=== PATIENT | female | born 1955 | race Caucasian/White ===

== ENCOUNTER 2023-07-15 14:14 | Emergency (ER) | payer OTHER, SELFPAY ==
[2023-07-15 14:26] VITALS: BP 134/73; PULSE 70; RESP 16; TEMP 36.7; O2SAT 97; BMI 26.5
[2023-07-15 15:34] VITALS: BP 133/89; PULSE 58; RESP 18; O2SAT 98
--- NOTE | 2023-07-15 15:55 | W.ED.RECABL ---
HPI - Recheck/Abnormal Lab/Rx General: Chief Complaint: Recheck/Abnormal Lab/Rx Stated Complaint: abnormal labs Time Seen by Provider: 07/15/23 15:55 Source: patient Mode of arrival: ambulatory History of Present Illness: 67-year-old female with a history of hypothyroidism she is not been feeling well she feels like she has difficult time swallowing she is concerned because she feels cold all the time and has been coughing and feels hoarse so she is talked to her primary care provider they advised her to come to the emergency room to have labs checked. She is on Synthroid has been since 1998. She is not on any other medications. Review of Systems Const: Denies: fever(s) or chills Card: Denies: chest pain Resp: Denies: dyspnea GI: Denies: abdominal pain : Denies: dysuria, urinary frequency or urinary urgency Musc: Denies: neck pain or back pain Skin/Breast: Denies: rash PFSH ED PFSH: Medical History (Updated 07/23/23 @ 00:00 by SAVANNAH Kimball) Hypothyroidism Physical Exam Const: COMMON NORMALS: no acute distress GENERAL APPEARANCE: cooperative and comfortable ORIENTATION/CONSCIOUSNESS: Yes awake, Yes oriented to person, Yes oriented to place and Yes oriented to time HENMT: COMMON NORMALS: normocephalic, atraumatic and hearing grossly normal bilaterally HEAD & SCALP: normocephalic and atraumatic Resp: COMMON NORMALS: normal respiratory effort, No retractions, No use of accessory muscles and clear to auscultation bilaterally AUSCULTATION: clear to auscultation bilaterally Cardio: COMMON NORMALS: regular rate, regular rhythm and No murmurs present (Cardio) RATE: regular rate RHYTHM: regular rhythm GI: COMMON NORMALS: Soft to palpation and No hepatosplenomegaly present AUSCULTATION: Yes normoactive bowel sounds PALPATION: Yes Soft to palpation, No Tenderness to palpation present (GI), No Guarding due to palpation present (GI) and Yes No hepatosplenomegaly present Extremity: COMMON NORMALS: normal to inspection, capillary refill normal, no clubbing, cyanosis or edema, no calf tenderness and no pedal edema Neuro: SENSORIUM/ORIENTATION: Yes oriented to person, Yes oriented to place and Yes oriented to time Skin: COMMON NORMALS: no rashes or lesions noted GENERAL SKIN EXAM: no rashes or lesions noted Course Vital Signs: Vital signs: Vital Signs Temperature 98.0 F 07/15/23 14:26 Pulse Rate 60 07/15/23 16:53 Respiratory Rate 19 H 07/15/23 16:53 Blood Pressure 137/77 07/15/23 16:53 Pulse Oximetry 99 07/15/23 16:53 Oxygen Delivery Me thod Room Air 07/15/23 15:34 MDM - Recheck/Abnormal Lab/Rx Medical Decision Making Viral upper respiratory i symptoms noted on exam and history. Her TSH is normal. Vital signs otherwise normal. She is euthyroid at this point does not need any adjustment recommend she use supportive cares for viral respiratory symptoms follow-up with her primary care doctor Medical Records I reviewed the patient's medical records. Lab Data I reviewed the patient's lab results. 07/15/23 15:49 07/15/23 15:49 Laboratory Results WBC 10.73 10^3/uL (3.29-11.43) 07/15/23 15:49 RBC 5.69 10^6/uL (3.85-5.65) H 07/15/23 15:49 Hgb 17.20 g/dL (11.27-16.99) H 07/15/23 15:49 Hct 50.5 % (36-47) H 07/15/23 15:49 MCV 88.8 fl (85-98) 07/15/23 15:49 MCH 30.2 pg (27-33) 07/15/23 15:49 MCHC 34.1 g/dL (30-55) 07/15/23 15:49 RDW 12.4 % (12.1-15.1) 07/15/23 15:49 Plt Count 370 10^3/cmm (157-399) 07/15/23 15:49 MPV 9.8 fL (7.4-10.4) 07/15/23 15:49 Neut % (Auto) 57.7 % 07/15/23 15:49 Lymph % (Auto) 33.9 % 07/15/23 15:49 [place] % (Auto) 6.4 % 07/15/23 15:49 Eos % (Auto) 0.7 % 07/15/23 15:49 Baso % (Auto) 1.0 % 07/15/23 15:49 Neut # (Auto) 6.18 10^3/uL (1.8-7.7) 07/15/23 15:49 Lymph # (Auto) 3.6 10^3/uL (0.8-4.8) 07/15/23 15:49 [place] # (Auto) 0.7 10^3/uL (0.2-0.9) 07/15/23 15:49 Eos # (Auto) 0.1 10^3/uL (0.0-0.8) 07/15/23 15:49 Baso # (Auto) 0.1 10^3/uL (0.0-0.1) 07/15/23 15:49 Nucleated RBC % (auto) 0 % 07/15/23 15:49 Nucleated RBCs # 0.0 /100WBC 07/15/23 15:49 Sodium 140 mmol/L (136-145) 07/15/23 15:49 Potassium 3.8 mmol/L (3.5-5.1) 07/15/23 15:49 Chloride 101 mmol/L (98-107) 07/15/23 15:49 Carbon Dioxide 25 mmol/L (22-29) 07/15/23 15:49 Anion Gap 17.8 (5-19) 07/15/23 15:49 BUN 13 mg/dL (8-23) 07/15/23 15:49 Creatinine 1.0 mg/dL (0.5-0.9) H 07/15/23 15:49 GFR Calculation 55.6 mL/min (90-130) L 07/15/23 15:49 Glucose 84 mg/dL (65-115) 07/15/23 15:49 Calculated Osmolality 289 mOsm/kg (285-295) 07/15/23 15:49 Calcium 9.7 mg/dL (8.5-10.5) 07/15/23 15:49 Total Bilirubin 0.6 mg/dL (0.15-1.2) 07/15/23 15:49 AST 17 U/L (0-32) 07/15/23 15:49 ALT 18 U/L (0-33) 07/15/23 15:49 Alkaline Phosphatase 66 U/L (35-105) 07/15/23 15:49 Total Protein 7.5 g/dL (6.6-8.7) 07/15/23 15:49 Albumin 4.7 g/dL (3.5-5.2) 07/15/23 15:49 Globulin 2.8 g/dL (1.3-4.6) 07/15/23 15:49 TSH 2.40 uIU/mL (0.27-4.20) 07/15/23 15:49 No radiology studies performed this visit Discharge Plan Discharge Patient Disposition: Home Clinical Impression: Viral URI with cough, Hypothyroidism Condition: Stable Discharge Orders: Discharge ED (Routine); Ordered 07/15/23 Ordered By: Antwon Parham Referrals: Gurinder Crooks FNP [Primary Care Provider] - Discharge Diet: Usual diet Discharge Activity: Resume usual activity Patient Instructions: Opioid Safety, Pain Management Activity Restrictions/Additional Instructions: Thank you for choosing [facility] for your healthcare needs today. Please realize this is an emergency room and that we are providing you with a medical screening exam and this may not be complete and all inclusive of all the testing and or work up that you may need to determine your ailment or severity of your illness. It is very important that you follow up as instructed or that you return to the Emergency Department should you have concerns or if your condition changes or worsens in any way. You were seen in the emergency room with complaints of low-grade fever coughing and hoarseness. These are likely signs of a viral upper respiratory infection rather than a thyroid issue. Laboratory test done in the emergency room showed some mild polycythemia but were otherwise unremarkable. Follow-up with your primary care doctor. Your thyroid testing, TSH was normal. Coding Level of Care Code ED Couture Dressmaker for Roberto James
[2023-07-15 15:57] LABS: Basophils # 0.1 10^3/uL (0.0-0.1); Eosinophils # 0.1 10^3/uL (0.0-0.8); Eosinophils % 0.7 %; Hematocrit 50.5 % (36-47); Lymphocytes # 3.6 10^3/uL (0.8-4.8); Lymphocytes % 33.9 %; Mean Corpuscular HGB Conc 34.1 g/dL (30-55); Mean Corpuscular Hemoglobin 30.2 pg (27-33); Mean Corpuscular Volume 88.8 fl (85-98); Mean Platelet Volume 9.8 fL (7.4-10.4); Monocytes # 0.7 10^3/uL (0.2-0.9); Monocytes % 6.4 %; Neutrophils # 6.18 10^3/uL (1.8-7.7); Neutrophils % 57.7 %; Nucleated Red Blood Cells % 0 %; Platelet Count 370 10^3/cmm (157-399); Red Blood Count 5.69 10^6/uL (3.85-5.65); Red Cell Distribution Width 12.4 % (12.1-15.1); White Blood Count 10.73 10^3/uL (3.29-11.43)
[2023-07-15 16:33] LABS: Alanine Aminotransferase 18 U/L (0-33); Albumin Level 4.7 g/dL (3.5-5.2); Alkaline Phosphatase 66 U/L (35-105); Anion Gap 17.8 (5-19); Aspartate Amino Transferase 17 U/L (0-32); Blood Urea Nitrogen 13 mg/dL (8-23); Calcium 9.7 mg/dL (8.5-10.5); Carbon Dioxide 25 mmol/L (22-29); Chloride 101 mmol/L (98-107); Globulin 2.8 g/dL (1.3-4.6); Glomerular Filtration Rate 55.6 mL/min (90-130); Glucose 84 mg/dL (65-115); Osmolality Calculated 289 mOsm/kg (285-295); Potassium 3.8 mmol/L (3.5-5.1); Sodium 140 mmol/L (136-145); Total Bilirubin 0.6 mg/dL (0.15-1.2); Total Protein 7.5 g/dL (6.6-8.7)
[2023-07-15 16:53] VITALS: BP 137/77; PULSE 60; RESP 19; O2SAT 99
== END 2023-07-15 17:37 | disposition home or self-care (01) ==
PROVIDERS: Physician Assistant; Emergency Provider Family Medicine; PCP Nurse Practitioner
DX: J06.9 Acute upper respiratory infection, unspecified (principal); R05.9 Cough, unspecified; E03.9 Hypothyroidism, unspecified
CPT/HCPCS: 36415; 80053; 84443; 85025; 99283

== ENCOUNTER 2024-04-11 18:43 | Emergency (ER) | payer MEDICARE, SELFPAY ==
[2024-04-11 18:56] VITALS: BP 157/73; PULSE 63; RESP 17; TEMP 37; O2SAT 98; BMI 23.9
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
[2024-04-11 20:58] VITALS: BP 151/75; PULSE 61; RESP 16; TEMP 37; O2SAT 99
== END 2024-04-11 20:05 | disposition home or self-care (01) ==
PROVIDERS: Emergency Provider Emergency Medicine; PCP Nurse Practitioner
DX: S89.391A Other physeal fracture of lower end of right fibula, initial encounter for closed fracture (principal); V29.99XA Rider (driver) (passenger) of other motorcycle injured in unspecified traffic accident, initial encounter
CPT/HCPCS: 29515; 73502; 73590; 73630; 99284; E0114

== ENCOUNTER → 2024-04-16 09:06 | Outpatient (BNVA) | payer MEDICARE, SELFPAY | PROVIDERS: PCP Nurse Practitioner; Visit Provider Podiatrist Foot & Ankle Surgery | DX: S82.401A Unspecified fracture of shaft of right fibula, initial encounter for closed fracture; X58.XXXA Exposure to other specified factors, initial encounter; R60.9 Edema, unspecified; M25.571 Pain in right ankle and joints of right foot; M21.619 Bunion of unspecified foot | CPT/HCPCS: 73610 ==

== ENCOUNTER 2024-04-16 10:28 | Outpatient (CLI) | payer MEDICARE, SELFPAY | END 2024-04-16 10:29 | disposition home or self-care (01) | LOC: SPT 10:29 | PROVIDERS: PCP Nurse Practitioner; Visit Provider Podiatrist Foot & Ankle Surgery | DX: Z46.89 Encounter for fitting and adjustment of other specified devices (principal); S82.891D Other fracture of right lower leg, subsequent encounter for closed fracture with routine healing; X58.XXXD Exposure to other specified factors, subsequent encounter | CPT/HCPCS: 97760; L4361 ==

== ENCOUNTER → 2024-05-01 09:08 | Outpatient (BNVA) | payer MEDICARE, SELFPAY | PROVIDERS: PCP Nurse Practitioner; Visit Provider Podiatrist Foot & Ankle Surgery | DX: M25.571 Pain in right ankle and joints of right foot (principal); S82.401A Unspecified fracture of shaft of right fibula, initial encounter for closed fracture; X58.XXXA Exposure to other specified factors, initial encounter; M21.611 Bunion of right foot | CPT/HCPCS: 73610; 99213 ==

== ENCOUNTER → 2024-05-12 09:05 | Outpatient (BNVA) | payer MEDICARE, SELFPAY | PROVIDERS: PCP Nurse Practitioner; Visit Provider Podiatrist Foot & Ankle Surgery | DX: S82.401A Unspecified fracture of shaft of right fibula, initial encounter for closed fracture (principal); M21.619 Bunion of unspecified foot; X58.XXXA Exposure to other specified factors, initial encounter | CPT/HCPCS: 73610; 99213 ==

== ENCOUNTER → 2024-05-28 09:45 | Outpatient (BNVA) | payer MEDICARE, SELFPAY | PROVIDERS: PCP Nurse Practitioner; Visit Provider Podiatrist Foot & Ankle Surgery | DX: S82.401D Unspecified fracture of shaft of right fibula, subsequent encounter for closed fracture with routine healing; X58.XXXD Exposure to other specified factors, subsequent encounter; R60.9 Edema, unspecified; M25.571 Pain in right ankle and joints of right foot; M21.611 Bunion of right foot | CPT/HCPCS: 73610 ==

== ENCOUNTER 2024-05-28 10:27 | Outpatient (CLI) | payer MEDICARE, SELFPAY | END 2024-05-28 10:28 | disposition home or self-care (01) | LOC: SPT 10:28 | PROVIDERS: PCP Nurse Practitioner; Visit Provider Podiatrist Foot & Ankle Surgery | DX: Z46.89 Encounter for fitting and adjustment of other specified devices (principal); S82.891D Other fracture of right lower leg, subsequent encounter for closed fracture with routine healing; X58.XXXD Exposure to other specified factors, subsequent encounter | CPT/HCPCS: 97760; L1902 ==

== ENCOUNTER → 2024-06-18 10:08 | Outpatient (BNVA) | payer MEDICARE, SELFPAY | PROVIDERS: PCP Nurse Practitioner; Visit Provider Podiatrist Foot & Ankle Surgery | DX: S82.401A Unspecified fracture of shaft of right fibula, initial encounter for closed fracture (principal); R60.9 Edema, unspecified; M21.619 Bunion of unspecified foot; X58.XXXA Exposure to other specified factors, initial encounter | CPT/HCPCS: 73610; 99213 ==

== ENCOUNTER 2024-09-02 20:29 | Inpatient (IN) | payer MEDICARE, SELFPAY ==
[2024-09-02 20:30] VITALS: BP 129/83; PULSE 89; RESP 18; TEMP 36.8; O2SAT 96
--- NOTE | 2024-09-02 20:41 | ECG_ITS ---
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 Measurements Intervals Flom Rate: 82 P: 56 CA: 165 QRS: -55 QRSD: 97 T: 113 QT: 390 QTc: 456 Interpretive Statements SINUS RHYTHM POSSIBLE LEFT ATRIAL ENLARGEMENT [-0.1mV P-WAVE IN V1/V2] INCOMPLETE RIGHT BUNDLE BRANCH BLOCK [90+ ms QRS DURATION, TERMINAL R IN V1/V2, 40+ ms S IN I/aVL/V4/V5/V6] LEFT ANTERIOR FASCICULAR BLOCK [QRS AXIS <= -45, QR IN I, RS IN II] POSSIBLE LEFT VENTRICULAR HYPERTROPHY [VOLTAGE CRITERIA PLUS LAE OR QRS WIDENING] ANTEROSEPTAL MYOCARDIAL INFARCTION , PROBABLY RECENT [40+ ms Q WAVE IN V1-V4] ACUTE AL No previous ECG available for comparison Electronically Signed On 09-03-2024 18:23:12 TRANSPORT COORDINATOR by Jeo Park M.D. [email or web address]
--- NOTE | 2024-09-02 20:41 | XRR_ITS ---
PROCEDURE INFORMATION: Exam: XR Chest Exam date and time: 09/02/2024 8:52 PM Age: 68 years old Clinical indication: Pain; Chest pressure; Additional info: Chest pain TECHNIQUE: Imaging protocol: Radiologic exam of the chest. Views: 1 view. COMPARISON: No relevant prior studies available. FINDINGS: Lungs: Unremarkable. No consolidation. Pleural spaces: Unremarkable. No pleural effusion. No pneumothorax. Heart/Mediastinum: Mild cardiomegaly. Bones/joints: Unremarkable. XR/XR chest 1V portable [id number] IMPRESSION: 1. Mild cardiomegaly. 2. Negative for infiltrate.
[2024-09-02 20:48] LABS: Basophils # 0.1 10^3/uL (0.0-0.1); Eosinophils # 0.3 10^3/uL (0.0-0.8); Eosinophils % 2.3 %; Hematocrit 48.8 % (36-47); Lymphocytes # 2.7 10^3/uL (0.8-4.8); Lymphocytes % 23.3 %; Mean Corpuscular HGB Conc 33.8 g/dL (30-55); Mean Corpuscular Hemoglobin 30.2 pg (27-33); Mean Corpuscular Volume 89.2 fl (85-98); Mean Platelet Volume 9.2 fL (7.4-10.4); Monocytes # 0.9 10^3/uL (0.2-0.9); Monocytes % 7.7 %; Neutrophils # 7.46 10^3/uL (1.8-7.7); Neutrophils % 65.4 %; Nucleated Red Blood Cells % 0 %; Platelet Count 368 10^3/cmm (157-399); Red Blood Count 5.47 10^6/uL (3.85-5.65); Red Cell Distribution Width 12.8 % (12.1-15.1)
[2024-09-02 20:59] LABS: INR 0.72 (0.8-1.2); Partial Thromboplastin Time 28.4 SECONDS (23.9-36.7)
[2024-09-02 21:10] LABS: Troponin(5th) Baseline 285 ng/L (0-10)
--- NOTE | 2024-09-02 21:17 | W.ED.CHESTPA ---
HPI - Chest Pain General: Chief Complaint: Chest Pain Stated Complaint: chest pains Time Seen by Provider: 09/02/24 20:39 History of Present Illness: 68-year-old female with a history of tobacco dependence who currently takes no medication who presents emergency room with chest pain. She says this been going on for couple of days and has been intermittent. She says she currently has no chest pain. Says when she does have it it feels like somebody is squeezing her entire chest. She been having some pain in her right ear and right neck as well. She has had some cough. No fevers. Mild shortness of breath. No altered mental status. No abdominal pain. No nausea or vomiting. She has no known cardiac history. Related Data Previous Rx's Medication Instructions Recorded oxycodone-acetaminophen 7.5 mg-325 1 tab PO Q6H PRN pain #10 tabs 04/11/24 mg tablet (Percocet) CAM boot #1 ea 04/16/24 ASO brace #1 ea 05/28/24 Allergies Allergy/AdvReac Type Severity Reaction Status Date / Time azithromycin Allergy Unknown Verified 09/02/24 20:45 Review of Systems Narrative: Constitutional symptoms: Negative except as documented in HPI. Skin symptoms: Negative except as documented in HPI. Eye symptoms: Negative except as documented in HPI. ENMT symptoms: Negative except as documented in HPI. Respiratory symptoms: Negative except as documented in HPI. Cardiovascular symptoms: Negative except as documented in HPI. Gastrointestinal symptoms: Negative except as documented in HPI. Genitourinary symptoms: Negative except as documented in HPI. Musculoskeletal symptoms: Negative except as documented in HPI. Neurologic symptoms: Negative except as documented in HPI. Psychiatric symptoms: Negative except as documented in HPI. Endocrine symptoms: Negative except as documented in HPI. PFS ED PFSH: Medical History Hypothyroidism Social History Smoking and tobacco/nicotine status: unknown if used tobacco/nicotine Physical Exam Narrative: EXAM NARRATIVE: General: Alert, no acute distress. Skin: Warm, dry. Head: Normocephalic, atraumatic. Neck: Supple, trachea midline. Eye: Extraocular movements are intact. Ears, nose, mouth and throat: mucosa moist. Cardiovascular: Regular, Normal peripheral perfusion. Respiratory: Lungs are clear to auscultation, respirations are non-labored, breath sounds are equal, Symmetrical chest wall expansion. Gastrointestinal: Soft, Nontender, Non distended Musculoskeletal: Normal ROM, no deformity. Neurological: Alert and oriented, No focal neurological deficit observed. Psychiatric: Cooperative, appropriate mood & affect. Course Vital Signs: Vital signs: Vital Signs Temperature 98.2 F 09/02/24 20:30 Pulse Rate 86 09/02/24 22:35 Respiratory Rate 18 09/02/24 20:30 Blood Pressure 106/68 09/02/24 22:35 Pulse Oximetry 92 09/02/24 22:35 MDM - Chest Pain Medical Decision Making Differential diagnosis for patient with chest pain includes but is not limited to and based on the above HPI, review of systems and physical exam: Pneumonia. unstable angina. angina. Acute coronary syndrome / OK. Pulmonary embolism. Costochondritis / musculoskeletal. Pleurisy. Pericarditis. Esophageal spasm. Pancreatis. Cholecystitis. Orders placed to evaluate differential diagnosis based on the above differential, HPI and physical exam EKG: EKG was brought to me by nursing with concern for abnormality. I was concerned as well side the patient brought immediately to a room. Sinus tachycardia, No ST-T changes, no ectopy, normal NE & QRS intervals, This was reviewed and interpreted by myself the ER physician at 2032. I found this EKG concerning with ST elevation in the lateral/septal leads. I immediately sent this to Dr. Ling who evaluated. It was not clearly a STEMI with no reciprocal changes. He advised repeating an EKG and around 30 minutes and following up on troponin. Consultation: I consulted Dr. Ling initially. This was not clearly a STEMI with no reciprocal changes. He advised repeating an EKG and around 30 minutes and following up on troponin. Lab Review: Laboratory results were reviewed and interpreted by myself the emergency room physician. Initial troponin was elevated at [address] Ling. He is taken the patient to the [facility]. EKG was repeated at that time as well. Consultation: I again consulted Dr. Ling who saw the patient in the emergency room and is taking her to the [facility] when he finishes a STEMI that arrived at almost the exact same time as this patient. It was clearly a STEMI and could have become unstable and so it took precedence over going to the [facility] first. Repeat EKG: Normal sinus rhythm, No ST-T changes, no ectopy, normal NE & QRS intervals, This was reviewed and interpreted by myself the ER physician at 2109. Again there is ST elevation in the leads V2, V3 and V4. This seems more pronounced than previous. Rate has decreased by about 20 bpm. Chest x-ray: Mild cardiomegaly. No acute process. No infiltrate. No pneumothorax. This was reviewed and interpreted by myself the emergency room physician. I also reviewed the radiology report. I reviewed the patient's medical record. Reexamination: Patient remained stable. No increased work of breathing. No altered mental status. No focal motor deficits. Patient has remained chest pain-free while she has been here. Assessment and plan: Non-ST elevation myocardial infarction Tobacco dependence ?Heparin bolus, heparin drip, nitro drip and loading dose Plavix given in the emergency room. -I discussed the patient with the hospitalist on-call who is admitting the patient. - Discussed findings and plan with patient. Answered any questions. - All laboratory values were reviewed and interpreted personally by myself, the ER physician - All imaging was reviewed and interpreted personally by myself, the ER physician. - Evaluation and treatment of this problem were appropriate in the emergency setting Critical care -I spent a total of >35 minutes of critical care time managing the patient, independent of any other practitioner. -The time involved in the performance of separately reportable procedures was not counted towards critical care time. Lab Data 09/02/24 20:43 09/02/24 20:43 Radiology Impressions Chest X-Ray 09/02/24 20:41 IMPRESSION: 1. Mild cardiomegaly. 2. Negative for infiltrate. Laboratory Results WBC 11.40 10^3/uL (3.29-11.43) 09/02/24 20:43 RBC 5.47 10^6/uL (3.85-5.65) 09/02/24 20:43 Hgb 16.50 g/dL (11.27-16.99) 09/02/24 20:43 Hct 48.8 % (36-47) H 09/02/24 20:43 MCV 89.2 fl (85-98) 09/02/24 20:43 MCH 30.2 pg (27-33) 09/02/24 20:43 MCHC 33.8 g/dL (30-55) 09/02/24 20:43 RDW 12.8 % (12.1-15.1) 09/02/24 20:43 Plt Count 368 10^3/cmm (157-399) 09/02/24 20:43 MPV 9.2 fL (7.4-10.4) 09/02/24 20:43 Neut % (Auto) 65.4 % 09/02/24 20:43 Lymph % (Auto) 23.3 % 09/02/24 20:43 [place] % (Auto) 7.7 % 09/02/24 20:43 Eos % (Auto) 2.3 % 09/02/24 20:43 Baso % (Auto) 1.0 % 09/02/24 20:43 Neut # (Auto) 7.46 10^3/uL (1.8-7.7) 09/02/24 20:43 Lymph # (Auto) 2.7 10^3/uL (0.8-4.8) 09/02/24 20:43 [place] # (Auto) 0.9 10^3/uL (0.2-0.9) 09/02/24 20:43 Eos # (Auto) 0.3 10^3/uL (0.0-0.8) 09/02/24 20:43 Baso # (Auto) 0.1 10^3/uL (0.0-0.1) 09/02/24 20:43 Nucleated RBC % (auto) 0 % 09/02/24: Nucleated RBCs # 0.0 /100WBC 09/02/24 20:43 PT 10.80 SECONDS (12.1-14.9) L 09/02/24 20:43 INR 0.72 (0.8-1.2) L 09/02/24 20:43 APTT 28.4 SECONDS (23.9-36.7) 09/02/24 20:43 Sodium 141 mmol/L (136-145) 09/02/24 20:43 Potassium 3.7 mmol/L (3.5-5.1) 09/02/24 20:43 Chloride 101 mmol/L (98-107) 09/02/24 20:43 Carbon Dioxide 24 mmol/L (22-29) 09/02/24 20:43 Anion Gap 19.7 (5-19) H 09/02/24 20:43 BUN 18 mg/dL (8-23) 09/02/24 20:43 Creatinine 0.9 mg/dL (0.5-0.9) 09/02/24 20:43 GFR Calculation 62.6 mL/min (90-130) L 09/02/24 20:43 Glucose 108 mg/dL (65-115) 09/02/24 20:43 Calculated Osmolality 294 mOsm/kg (285-295) 09/02/24 20:43 Calcium 9.4 mg/dL (8.5-10.5) 09/02/24 20:43 Total Bilirubin 0.2 mg/dL (0.15-1.2) 09/02/24 20:43 AST 27 U/L (0-32) 09/02/24 20:43 ALT 20 U/L (0-33) 09/02/24 20:43 Alkaline Phosphatase 101 U/L (35-105) 09/02/24 20:43 Troponin T Baseline 285 ng/L (0-10) H* 09/02/24 20:43 NT-Pro-B Natriuret Pep 3843 pg/mL (0-125) H 09/02/24 20:43 Total Protein 7.2 g/dL (6.6-8.7) 09/02/24 20:43 Albumin 4.4 g/dL (3.5-5.2) 09/02/24 20:43 Globulin 2.8 g/dL (1.3-4.6) 09/02/24 20:43 All radiology interpretation(s) finalized by discharge Discharge Plan Discharge Condition: Stable Prescriptions: No Action (DME) CAM boot See Rx Instructions .Route .MEDSUPPLY Qty: 1 0RF Rx Instructions: As directed (DME) ASO brace See Rx Instructions .Route .MEDSUPPLY Qty: 1 0RF Rx Instructions: As directed Percocet 7.5-325 mg tablet 1 tab PO Q6H PRN (Reason: pain) Qty: 10 0RF Referrals: Gurinder Crooks FNP [Primary Care Provider] - Coding Level of Care Code ED Tutor Coordinator for [facility]
[2024-09-02 21:26] LABS: Alanine Aminotransferase 20 U/L (0-33); Albumin Level 4.4 g/dL (3.5-5.2); Alkaline Phosphatase 101 U/L (35-105); Aspartate Amino Transferase 27 U/L (0-32); Blood Urea Nitrogen 18 mg/dL (8-23); Calcium 9.4 mg/dL (8.5-10.5); Carbon Dioxide 24 mmol/L (22-29); Chloride 101 mmol/L (98-107); Globulin 2.8 g/dL (1.3-4.6); Glomerular Filtration Rate 62.6 mL/min (90-130); Glucose 108 mg/dL (65-115); NT Pro B Type Natriuretic Pept 3843 pg/mL (0-125); Osmolality Calculated 294 mOsm/kg (285-295); Sodium 141 mmol/L (136-145); Total Bilirubin 0.2 mg/dL (0.15-1.2); Total Protein 7.2 g/dL (6.6-8.7)
[2024-09-02 21:31] LABS: Anion Gap 19.7 (5-19); Potassium 3.7 mmol/L (3.5-5.1)
[2024-09-02] MEDS: heparin drip 25,000 UNIT/500 ML PREMIX 15.89 UNIT IV (21:42)
[2024-09-02] MEDS: heparin 5,000 unit/mL INJ 1 mL 400 UNIT IVP (21:43)
[2024-09-02] MEDS: nitroglycerin drip 50 MG/250 ML PREMIX IV (21:45)
[2024-09-02] MEDS: ticagrelor 90 mg Tablet 180 MG PO (21:45)
[2024-09-02 21:57] VITALS: BP 112/79; PULSE 86; O2SAT 94
--- NOTE | 2024-09-02 22:34 | PM.HP ---
Providers/Chief Complaint Primary Care Provider: DELONTE Atkinson Chief Complaint: chest pains History of Present Illness Samantha Almaraz is a 68 year old female Presented to the ER with off-and-on nonspecific pressure across the chest and abdomen going on for the last 2 to 3 days. Patient has been experiencing these symptoms for the past few months however for last 2 3 days it has become more consistent therefore she decided to come to the ER, twelve-lead EKG showed artifact right bundle branch block and possible ST elevation in just V2 lead, no prior EKG to compare, patient was complaining of pain on the scale of 1-10 around 2, initial impression on the basis of first EKG possible acute coronary syndrome but not quite meeting the criteria for ST elevation VA therefore we decided to check troponin repeat EKG in 10 minutes and if pain reoccurs or dynamic EKG changes with chest pain we plan to take her to the Receptionist Clerk since there is another patient presenting to the ER now with significant ST elevation in the inferior leads/ reciprocal changes suggestive of definite ST elevation VA he appeared to be more unstable diaphoretic and in moderate to severe distress. We woud therefore plan to proceed with him first since she appeared to be stable. Currently patient is chest pain-free will start her on heparin and nitroglycerin drip, we will repeat serial EKGs and proceed with left heart cath soon after we finish other STEMI who is appeared to be unstable. Medications/Allergies Home Medications Medication Instructions Recorded Confirmed Last Taken Type oxycodone-acetaminophen 7.5 mg-325 1 tab PO Q6H PRN pain #10 tabs 04/11/24 06/18/24 Unknown Rx mg tablet (Percocet) CAM boot #1 ea 04/16/24 06/18/24 Unknown Rx ASO brace #1 ea 05/28/24 06/18/24 Unknown Rx Allergies Allergy/AdvReac Type Severity Reaction Status Date / Time azithromycin Allergy Unknown Verified 09/02/24 20:45 PFSH Acute PFSH: Medical History Hypothyroidism Social History Smoking and tobacco/nicotine status: unknown if used tobacco/nicotine Vitals/I&O/Wt Last Vital Signs Temp 98.2 F 01/08/25 20:30 Pulse 86 09/02/24 21:57 Resp 18 09/02/24 20:30 BP 112/79 09/02/24 21:57 Pulse Ox 94 09/02/24 21:57 09/02/24 09/02/24 09/02/24 06:59 14:59 22:59 Intake Total 0 / 0 Balance 0 / 0 Weight last 48 hrs Weight 146 lb Physical Exam Const: OTHER: GENERAL: Patient is alert, awake and oriented x3. Not in distress HEART: Regular S1 and S2. No murmur, rub or gallop. LUNGS: Clear to auscultate bilaterally. CENTRAL NERVOUS SYSTEM: Grossly nonfocal. EXTREMITIES: Lower extremities with out edema bilaterally. Data 09/02/24 20:43 09/02/24 20:43 A&P Assessment and plan (1) Acute coronary syndrome with high troponin: 62-year-old female with history of continues tobacco abuse presented with chest pain along with dynamic EKG changes suggestive of acute coronary syndrome with unstable plaque we would therefore proceed with urgent left heart cath/PCI if indicated once we finished with our unstable STEMI patient which has presented to the ER. Continue aspirin statin heparin nitro drip serial EKGs, she will be n.p.o. for urgent procedure tonight once we finish the first case. (2) Smoking addiction: Advised quitting smoking. Attestations Medical Necessity Statement*: I am expecting her stay to cross more than 2 midnights Coding Level of Care Code Acute Code for [facility] Fwd Diagnoses Acute coronary syndrome with high troponin I24.9 Smoking addiction F17.200
[2024-09-02 22:35] VITALS: BP 106/68; PULSE 86; O2SAT 92
--- NOTE | 2024-09-02 23:13 | PC.RESP ---
2241 EKG canceled, patient in cardiac operations label clerk during this time.
[2024-09-02 23:14] LABS: Troponin 5 2HR 379.3 ng/L (0-10)
[2024-09-02 23:15] LABS: Troponin 5 2HR Delta 94.3 ABS# (0-10)
[2024-09-02 23:55] VITALS: PULSE 67
--- NOTE | 2024-09-02 23:55 | PC.NURSE ---
Received pt from company laborer post angiogram. Pt alert and oriented x4. Pt complains of no pain. TR in place on right wrist with distal pulse palpable. No bruise or hematoma present. Pt to be monitored per protocol.
[2024-09-03] VITALS (33 sets, daily range): BP systolic 93–137; BP diastolic 55–95; PULSE 60–90; RESP 11–23; TEMP 36.6–37.4; O2SAT 18–100; BMI 31.4
--- NOTE | 2024-09-03 | PM.PROC ---
Procedure Note: Date of procedure: 09/03/24 Pre-procedure diagnosis: nstemi Post-procedure diagnosis: same Procedure: Drug-eluting stent to proximal LAD for high-grade 95 to 99% stenosis with ruptured plaque. Stent was then post dilated with noncompliant balloon. Patient also had calcified proximal ramus and mid circumflex moderate to high grade stenosis, she will be needing staged PCI for it LV gram was consistent with moderately depressed left ventricular ejection fraction 40%. LVEDP was were elevated at 33 mm Plan: Continue aspirin statin Brilinta 90 mg twice daily from tomorrow IV Lasix 40 mg now for high LVEDP Echocardiogram in the morning Continue beta-jessie 12.5 mg succinate once a day from former Will optimize medications with Entresto once tolerate blood pressure glasgow Coding Level of Care Code Acute Code for [facility]
--- NOTE | 2024-09-03 00:06 | USCV_ITS ---
Samantha Almaraz Age: 68 Gender: F : 1955 Exam Date: 09/03/2024 01:08 Ordering Phys: Justino Ling MD ([email or web address]) Technologist: FARHAD [place]am [place] [facility] [place]ication: NSTEMI, chf, tobacco addiction, CHEST PAIN BP: 106 / 68 HR: 79 Rhythm: Sinus Technical Quality: Adequate MEASUREMENTS (Male / Female) Normal Values 2D ECHO LV Diastolic Diameter PLAX 3.9 cm 4.2 - 5.9 / 3.9 - 5.3 cm IVS Diastolic Thickness 1.4 cm 0.6 - 1.0 / 0.6 - 0.9 cm IVS Systolic Thickness 1.9 cm LVPW Diastolic Thickness 1.4 cm 0.6 - 1.0 / 0.6 - 0.9 cm LVPW Systolic Thickness 2.0 cm LVOT Diameter 1.8 cm LV Ejection Fraction 2D Teich 60.5 % LV Ejection Fraction MOD 4C 51.8 % LV Ejection Fraction MOD 2C 49.9 % LV Ejection Fraction 2C AL 52.7 % LA Diameter 3.2 cm Aorta at Sinotubular Diameter 2.9 cm IVC Diameter 1.1 cm M-MODE LA Ao Ratio MM 1.1 AV Cusp Separation MM 1.7 cm DOPPLER AV Peak Velocity 97.0 cm/s LVOT Peak Velocity 91.0 cm/s AV Area Cont Eq vti 2.5 cm squared AV Area Cont Eq pk 2.4 cm squared MV Peak Velocity 85.0 cm/s MV Area PHT 4.6 cm squared Mitral E to A Ratio 0.8 TV Peak E Velocity 51.0 cm/s PV Peak Velocity 81.0 cm/s FINDINGS Left Ventricle Left ventricle is normal in size. LV systolic function is severely reduced with EF of 30 to 35%. Mild to moderate global hypokinesis with severe hypokinesis of apical, anterior, anteroseptal and mid to apical anterolateral kee. Grade 1 diastolic dysfunction. Right Ventricle Normal in size and function Right Atrium Normal in size Left Atrium Normal in size Mitral Valve Structurally normal mitral valve.Mild mitral regurgitation. Aortic Valve Structurally normal aortic valve. No significant stenosis. Mild aortic regurgitation Tricuspid Valve Mild tricuspid regurgitation. Insufficient TR jet to calculate RVSP Pulmonic Valve Not well visualized Pericardium Normal Aorta Normal in size IVC Appears to be normal CONCLUSIONS LV systolic function severely reduced with EF of 30-35%. Above- mentioned motion abnormalities. Grade 1 diastolic dysfunction Mild mitral regurgitation. Mild aortic regurgitation Mild tricuspid regurgitation No comparison studies are available. Jacoby Frey MD (Electronically Signed) Final Date: 04 September 2024 07:52 S
[2024-09-03] MEDS: FUROsemide 10 mg/mL SDV 4mL 40 MG IVP (01:11)
[2024-09-03] MEDS: atorvastatin 40 mg Tablet 80 MG PO ×2 (01:11→21:04)
[2024-09-03] MEDS: potassium chloride ER 10 mEq Tablet 20 MEQ PO (01:11)
[2024-09-03 03:14] LABS: Basophils # 0.1 10^3/uL (0.0-0.1); Basophils % 0.8 %; Eosinophils # 0.2 10^3/uL (0.0-0.8); Eosinophils % 2.1 %; Hematocrit 45.1 % (36-47); Lymphocytes # 3.3 10^3/uL (0.8-4.8); Lymphocytes % 30.8 %; Mean Corpuscular HGB Conc 34.8 g/dL (30-55); Mean Corpuscular Hemoglobin 30.4 pg (27-33); Mean Corpuscular Volume 87.4 fl (85-98); Mean Platelet Volume 9.8 fL (7.4-10.4); Monocytes # 0.7 10^3/uL (0.2-0.9); Monocytes % 6.3 %; Neutrophils # 6.35 10^3/uL (1.8-7.7); Neutrophils % 59.6 %; Nucleated Red Blood Cells % 0 %; Platelet Count 368 10^3/cmm (157-399); Red Blood Count 5.16 10^6/uL (3.85-5.65); Red Cell Distribution Width 12.9 % (12.1-15.1); White Blood Count 10.64 10^3/uL (3.29-11.43)
[2024-09-03 03:39] LABS: Anion Gap 17.9 (5-19); Blood Urea Nitrogen 20 mg/dL (8-23); Calcium 9.3 mg/dL (8.5-10.5); Carbon Dioxide 26 mmol/L (22-29); Chloride 101 mmol/L (98-107); Creatinine Clr Calc Pharmacy 61.6717; Glomerular Filtration Rate 71.8 mL/min (90-130); Glucose 151 mg/dL (65-115); Osmolality Calculated 298 mOsm/kg (285-295); Potassium 3.9 mmol/L (3.5-5.1); Sodium 141 mmol/L (136-145)
[2024-09-03 03:40] LABS: Troponin 5 6HR 786.1 ng/L (0-10); Troponin 5 6HR Delta 501.1 ng/L (0-12)
--- NOTE | 2024-09-03 04:18 | ECG_ITS ---
Nudge Test Date: 2024-09-03 Pat Name: Samanhta Almaraz Department: Room: 111 Gender: Female Bulldogger: : 1955 Requested By: Natalie Oconnor Order Number: [id number] Nguyen MD: Joe Park M.D. Measurements Intervals [place] Rate: 66 P: 64 VT: 175 QRS: -50 QRSD: 103 T: 217 QT: 464 QTc: 489 Interpretive Statements SINUS RHYTHM LEFT ATRIAL ENLARGEMENT [-0.15mV P-WAVE IN V1/V2] LEFT AXIS DEVIATION [QRS AXIS < -30] PATTERN CONSISTENT WITH PULMONARY DISEASE INCOMPLETE RIGHT BUNDLE BRANCH BLOCK [90+ ms QRS DURATION, TERMINAL R IN V1/V2, 40+ ms S IN I/aVL/V4/V5/V6] SEPTAL MYOCARDIAL INFARCTION , OF INDETERMINATE AGE [40+ ms Q WAVE IN V1/V2] MODERATE T-WAVE ABNORMALITY, CONSIDER ANTEROLATERAL ISCHEMIA [-0.1+ mV T-WAVE IN V3-V6].Compared to ECG 09/02/2024 21:08:19.Left-axis deviation now present T-wave abnormality now present. Possible ischemia now present Left anterior fascicular block no longer present .Myocardial infarct finding still present Electronically Signed On 09-03-2024 18:29:06 COMPUTER SYSTEMS TECHNICIAN by Joe Park M.D. [email or web address]
--- NOTE | 2024-09-03 05:00 | PC.NURSE ---
TR band removed with no hematoma or bruise noted. Nurse educated pt on restrictions of right wrist and pt acknowledged understanding. Nurses to continue to educate pt for the remainder of stay.
[2024-09-03] MEDS: metoprolol succinate ER (24 HR) 25 mg Tablet 12.5 MG PO (08:28)
[2024-09-03] MEDS: ticagrelor 90 mg Tablet PO ×2 (08:29→17:53)
--- NOTE | 2024-09-03 11:41 | P.PN_ITS ---
Documented by User: DELONTE Alcala 09/03/24 13:53 Subjective 2 Subjective: Patient had coronary angiogram in the online content editor this morning, RADHA x1 to the proximal LAD, the proximal ramus and mid circumflex also have moderate to high grade stenosis. Plan is to perform staged PCI as an outpatient in 1 month. She is feeling well this morning, no chest pain or shortness of breath. No complications with the right radial cath site, no hematoma present. Blood pressures have been soft, she is currently receiving IV fluids and taking in food and drink without difficulty. Her LV function was diminished, 40% by LV gram. Echocardiogram has been completed and pending read. She appears well compensated currently, no edema. If blood pressure improves, we can try to start Entresto, however so far has been soft. I have discussed smoking cessation with her, she reports she was told not to take Chantix by several physicians. She has tried nicotine patches without benefit, kept smoking with them on. She will continue to try to quit smoking without aids. She also is currently declining to take aspirin, as she was told it causes problems with the thyroid. Vitals/I&O/Wt Last Vital Signs Temp 98.2 F 09/03/24 11:19 Pulse 82 09/03/24 11:19 Resp 17 09/03/24 11:19 BP 103/65 09/03/24 11:19 Pulse Ox 96 09/03/24 11:19 O2 Del Method Room Air 09/03/24 11:19 09/02/24 09/03/24 09/03/24 22:59 06:59 14:59 Intake Total 0 / 0 480 / 480 Balance 0 / 0 480 / 480 Weight last 48 hrs Weight 160 lb 12.8 oz Weight 146 lb Weight 160 lb 12.8 oz Weight 146 lb Physical Exam 2 Const: COMMON NORMALS: no acute distress and patient oriented x3 GENERAL APPEARANCE: cooperative ORIENTATION/CONSCIOUSNESS: Yes awake, Yes oriented to person, Yes oriented to place and Yes oriented to time Chest: COMMONS NORMALS: normal inspection of the chest and normal palpation of entire chest wall CHEST: Yes Symmetrical chest wall rise Resp: COMMON NORMALS: normal respiratory effort, No retractions, No use of accessory muscles and clear to auscultation bilaterally AUSCULTATION: clear to auscultation bilaterally Cardio: COMMON NORMALS: regular rate, regular rhythm, S1 normal heart sound present, S2 normal heart sound present, No gallops present (Cardio), No clicks present (Cardio), No murmurs present (Cardio) and No rub (Cardio) RATE: r egular rate RHYTHM: regular rhythm HEART SOUNDS: S1 normal heart sound present and S2 normal heart sound present PERIPHERAL PULSES: radial pulses present positive right 2+ and femoral pulses present positive right 2+ Neuro: COMMON NORMALS: patient oriented x3 and moves all extremities S ENSORIUM/ORIENTATION: Yes oriented to person, Yes oriented to place and Yes oriented to time Skin: WOUNDS: Yes surgical site (no hematoma palpable) Details: no odor Data 09/03/24 02:55 09/04/24 10:58 A&P Assessment and plan (1) Coronary artery disease: She is s/p PCI to the proximal LAD, plan for staged PCI for proximal ramus and mid circumflex at a later date. No chest pain since procedure. Continue aspirin, Brilinta, atorvastatin 80mg daily. Qualifiers: Associated angina: without angina Coronary Disease-Associated Artery/Lesion type: [place] artery [place] vs. transplanted heart: [place] heart Qualified Code(s): I25.10 - Atherosclerotic heart disease of [place] coronary artery without angina pectoris (2) ACS (acute coronary syndrome): (3) Systolic CHF, acute: She does not appear volume overloaded, will continue with metoprolol succinate 12.5mg daily, plan to add Entresto for GDMT if blood pressure allows. (4) Smoking addiction: Advised smoking cessation. (5) NSTEMI (non-ST elevated myocardial infarction): Attestations 2 Medical Necessity Statement*: expect for care to cross 2 midnights for systolic CHF Coding Level of Care Code Acute Code for [facility] Diagnoses Coronary artery disease involving [place] coronary artery of [place] heart without angina pectoris I25.10 Associated angina: without angina Coronary Disease-Associated Artery/Lesion type: [place] artery [place] vs. transplanted heart: [place] heart ACS (acute coronary syndrome) I24.9 Systolic CHF, acute I50.21 Smoking addiction F17.200 NSTEMI (non-ST elevated myocardial infarction) I21.4 Documented by User: Justino Ling MD 09/04/24 23:53 Subjective 2 Subjective: Patient was evaluated and cared for in conjunction with an advanced practice practitioner. I personally examined the patient and reviewed the chart and all pertinent data including imaging, telemetry, and laboratory results. I discussed the patient in detail with the advanced practice practitioner. Please see their note for complete H&P testing result and agreed upon plan of care for the patient. For unstable non-ST ovation OR patient underwent emergent left heart catheterization noted to have significant proximal LAD disease treated with single drug-eluting stent. It was also noted patient has calcified mid circumflex and proximal ramus intermedius moderate to severe lesions thought to be managed with staged PCI since it is not patient's acute problem. GENERAL: Patient is alert, awake and oriented x3. HEART: Regular S1 and S2. No murmur, rub or gallop. LUNGS: Clear to auscultate bilaterally. CENTRAL NERVOUS SYSTEM: Grossly nonfocal. EXTREMITIES: Lower extremities with out edema bilaterally. Assessment plan Non-ST elevation OR & status post drug-eluting stent to proximal RCA which was the culprit lesion Moderately depressed left ventricular ejection fraction 45% Moderate left ventricular end-diastolic pressure elevation Excessive tobacco abuse Add beta-jessie and ALEXANDRA inhibitor over next 24 hours. Continue aspirin statin and Brilinta. Echocardiogram will be obtained. Advise quitting smoking patient has not given me any date. Patient had coronary angiogram in the online content editor this morning, RADHA x1 to the proximal LAD, the proximal ramus and mid circumflex also have moderate to high grade stenosis. Plan is to perform staged PCI as an outpatient in 1 month. She is feeling well this morning, no chest pain or shortness of breath. No complications with the right radial cath site, no hematoma present. Blood pressures have been soft, she is currently receiving IV fluids and taking in food and drink without difficulty. Her LV function was diminished, 40% by LV gram. Echocardiogram has been completed and pending read. She appears well compensated currently, no edema. If blood pressure improves, we can try to start Entresto, however so far has been soft. I have discussed smoking cessation with her, she reports she was told not to take Chantix by several physicians. She has tried nicotine patches without benefit, kept smoking with them on. She will continue to try to quit smoking without aids. She also is currently declining to take aspirin, as she was told it causes problems with the thyroid. Data 09/03/24 02:55 09/04/24 10:58 A&P Assessment and plan (1) Coronary artery disease: Qualifiers: Associated angina: without angina Coronary Disease-Associated Artery/Lesion type: [place] artery [place] vs. transplanted heart: [place] heart Qualified Code(s): I25.10 - Atherosclerotic heart disease of [place] coronary artery without angina pectoris (2) ACS (acute coronary syndrome): (3) Systolic CHF, acute: (4) Smoking addiction: (5) NSTEMI (non-ST elevated myocardial infarction): Coding Level of Care Code Acute Code for [facility] Diagnoses Coronary artery disease involving [place] coronary artery of [place] heart without angina pectoris I25.10 Associated angina: without angina Coronary Disease-Associated Artery/Lesion type: [place] artery [place] vs. transplanted heart: [place] heart ACS (acute coronary syndrome) I24.9 Systolic CHF, acute I50.21 Smoking addiction F17.200 NSTEMI (non-ST elevated myocardial infarction) I21.4
[2024-09-03] MEDS: HYDROcodone-acetaminophen 5-325 mg Tablet 1 TAB PO (21:04)
[2024-09-04] VITALS (8 sets, daily range): BP systolic 95–102; BP diastolic 54–67; PULSE 65–84; RESP 13–21; TEMP 36.5–37.6; O2SAT 95–98
[2024-09-04] MEDS: levothyroxine 125 mcg Tablet PO (06:31)
[2024-09-04] MEDS: aspirin 81 mg EC Tablet PO (09:35)
[2024-09-04] MEDS: ticagrelor 90 mg Tablet PO ×2 (09:35→17:43)
[2024-09-04] MEDS: metoprolol succinate ER (24 HR) 25 mg Tablet 12.5 MG PO (09:36)
[2024-09-04 11:27] LABS: Anion Gap 14.8 (5-19); Blood Urea Nitrogen 15 mg/dL (8-23); Calcium 8.8 mg/dL (8.5-10.5); Carbon Dioxide 25 mmol/L (22-29); Chloride 103 mmol/L (98-107); Creatinine Clr Calc Pharmacy 54.4493; Glomerular Filtration Rate 62.6 mL/min (90-130); Glucose 93 mg/dL (65-115); Osmolality Calculated 289 mOsm/kg (285-295); Potassium 3.8 mmol/L (3.5-5.1); Sodium 139 mmol/L (136-145)
[2024-09-04] MEDS: atorvastatin 40 mg Tablet 80 MG PO (21:15)
[2024-09-04] MEDS: HYDROcodone-acetaminophen 5-325 mg Tablet 1 TAB PO (21:15)
--- NOTE | 2024-09-04 23:53 | PM.PN ---
Subjective Subjective: Patient denies any complaint no overnight event blood pressure on the softer side Vitals/I&O/Wt Last Vital Signs Temp 99.7 F H 09/04/24 19:43 Pulse 76 09/04/24 22:00 Resp 18 09/04/24 19:43 BP 99/54 09/04/24 19:43 Pulse Ox 95 09/04/24 19:55 O2 Del Method Room Air 09/04/24 19:55 09/04/24 09/04/24 09/05/24 14:59 22:59 06:59 Intake Total 460 / 460 960 / 1420 Balance 460 / 460 960 / 1420 Weight last 48 hrs Weight 158 lb 11.2 oz Weight 160 lb 12.8 oz Weight 146 lb Weight 160 lb 12.8 oz Physical Exam Const: OTHER: GENERAL: Patient is alert, awake and oriented x3. HEART: Regular S1 and S2. No murmur, rub or gallop. LUNGS: Clear to auscultate bilaterally. CENTRAL NERVOUS SYSTEM: Grossly nonfocal. EXTREMITIES: Lower extremities with out edema bilaterally. Data 09/03/24 02:55 09/04/24 10:58 A&P Assessment and plan (1) Coronary artery disease: She is s/p PCI to the proximal LAD, plan for staged PCI for proximal ramus and mid circumflex at a later date. No chest pain since procedure. Continue aspirin, Brilinta, atorvastatin 80mg daily. Qualifiers: Coronary Disease-Associated Artery/Lesion type: [place] artery [place] vs. transplanted heart: [place] heart Associated angina: without angina Qualified Code(s): I25.10 - Atherosclerotic heart disease of [place] coronary artery without angina pectoris (2) ACS (acute coronary syndrome): (3) Systolic CHF, acute: She does not appear volume overloaded, will continue with metoprolol succinate 12.5mg daily, plan to add Entresto for GDMT if blood pressure allows. (4) Smoking addiction: Advised smoking cessation. (5) NSTEMI (non-ST elevated myocardial infarction): Plan From a cardiovascular perspective patient continues to do fine. Patient has moderately depressed left ventricular ejection fraction she was given 40 mg of IV Lasix yesterday she diuresed well. Add 20 mg of p.o. daily Lasix. Continue metoprolol succinate 12.5 mg once a day add lisinopril 2.5 mg continue aspirin statin and ticagrelor Brilinta 90 mg twice daily. Attestations Medical Necessity Statement*: Patient require continuation hospitalization for optimization of medicine Coding Level of Care Code Acute Code for [facility] Diagnoses Coronary artery disease involving [place] coronary artery of [place] heart without angina pectoris I25.10 Coronary Disease-Associated Artery/Lesion type: [place] artery [place] vs. transplanted heart: [place] heart Associated angina: without angina ACS (acute coronary syndrome) I24.9 Systolic CHF, acute I50.21 Smoking addiction F17.200 NSTEMI (non-ST elevated myocardial infarction) I21.4
[2024-09-05] VITALS (64 sets, daily range): BP systolic 90–112; BP diastolic 56–60; PULSE 58–76; RESP 9–24; TEMP 36.9–37; O2SAT 94–96
[2024-09-05] MEDS: levothyroxine 125 mcg Tablet PO (05:19)
[2024-09-05] MEDS: metoprolol succinate ER (24 HR) 25 mg Tablet 12.5 MG PO (09:02)
[2024-09-05] MEDS: aspirin 81 mg EC Tablet PO (09:03)
[2024-09-05] MEDS: ticagrelor 90 mg Tablet PO ×2 (09:03→18:00)
--- NOTE | 2024-09-05 13:23 | PM.DCS ---
Discharge Providers Date of Admission: 09/03/24 00:16 Date of Discharge: September 05, 2024 Attending Provider at Admission: Justino Ling MD Attending Provider at Discharge: Justino Ling MD Consults: 68-year-old female was admitted with unstable non-ST elevation MO taken to the [facility] for dynamic EKG changes and abnormal troponin. She was noted to have significant proximal LAD lesion treated with single drug-eluting stent postdilated with noncompliant balloon. During the same angiogram it was learned patient has mid circumflex and proximal ramus intermedius lesions thought to be treated with staged PCI in 2 to 3 weeks. Patient was also noted to have severely depressed left ventricular ejection fraction 30-35 % by LV gram, LVEDP was high. She was started on guideline medical therapy for heart failure however she has not tolerated because of low blood pressure. Currently patient is stable and doing fine. She is moving around without any difficulty denies any chest pain shortness of breath PND orthopnea. She was diuresed with IV Lasix. Patient has been discussed in detail regarding quitting smoking she has not so far agreed but told us that she will try. Currently she is taking metoprolol 12.5 mg once a day, Entresto she is not going to take secondary to hypotension and cost affording issue, therefore we have added 2.5 mg of lisinopril in the night it was held last night due to low blood pressure. I will continue Lasix as 40 mg once a day in the morning. Will also send her 20 mEq of potassium chloride with it. Patient has been given heart failure education patient will be advised if gain more than 2 pound in 3 consecutive days she should take extra water pill that is Lasix along with potassium. My plan is to add Aldactone 12.5mg as an outpatient because of blood pressure issues. Today she will be discharged home. She has been advised to continue Brilinta 90 mg p.o. twice daily and aspirin 81 mg once a day. Patient has been advised not to take ibuprofen Advil on regular basis as it can increase chance of bleeding and retention of fluid. Advised to take regular pantoprazole 40mg daily to prevent gastritis with using these medicines. Primary Care Provider: DELONTE Atkinson Diagnoses at Discharge Discharge Diagnosis (1) Coronary artery disease: Details from hospital stay: Take [id number], status post PCI, ischemic cardiomyopathy with severely depressed ejection fraction new onset of heart failure systolic type, severity depressed left ventricular ejection fraction by ventriculography 35%. Status: Acute Qualifiers: Associated angina: without angina Coronary Disease-Associated Artery/Lesion type: [place] artery [place] vs. transplanted heart: [place] heart Qualified Code(s): I25.10 - Atherosclerotic heart disease of [place] coronary artery without angina pectoris (2) ACS (acute coronary syndrome): Status: Acute (3) Systolic CHF, acute: Status: Acute (4) Smoking addiction: Status: Acute (5) NSTEMI (non-ST elevated myocardial infarction): Status: Acute (6) Ischemic cardiomyopathy: Details from hospital stay: Patient has ischemic cardiomyopathy with severely depressed left ventricular ejection fraction guideline medical therapy was initiated however patient is not tolerating Entresto for low blood pressure reason therefore we will added Aldactone as an outpatient. Since patient have ischemic cardiomyopathy with severely depressed ejection fraction less than 35% for primary prevention we recommend LifeVest. Status: Acute (7) Left ventricular systolic dysfunction (LVSD): Status: Acute Reason for Visit Reason for Visit: chest pains Hospital Course Hospital Course As above Physical Exam Narrative: GENERAL: Patient is alert, awake and oriented x3. HEART: Regular S1 and S2. No murmur, rub or gallop. LUNGS: Clear to auscultate bilaterally. CENTRAL NERVOUS SYSTEM: Grossly nonfocal. EXTREMITIES: Lower extremities with out edema bilaterally. Discharge Data Studies Completed and Pending Completed Studies During Hospitalization Category Date Time Status XR chest 1V portable [id number] Stat Exams 09/02/24 20:41 Completed US echo complete [CV. echo complete* [id number]] Routine Ultrasound 09/03/24 00:06 Completed Pending at discharge Category Date Time Status MOTORIZED S[place]AD [place]IE[place]NT request for service Stat Exams 09/02/24 21:58 Taken Radiology Impressions Chest X-Ray 09/02/24 20:41 IMPRESSION: 1. Mild cardiomegaly. 2. Negative for infiltrate. Laboratory Results WBC 10.64 10^3/uL (3.29-11.43) 09/03/24 02:55 RBC 5.16 10^6/uL (3.85-5.65) 09/03/24 02:55 Hgb 15.70 g/dL (11.27-16.99) 09/03/24 02:55 Hct 45.1 % (36-47) 09/03/24 02:55 MCV 87.4 fl (85-98) 09/03/24 02:55 MCH 30.4 pg (27-33) 09/03/24 02:55 MCHC 34.8 g/dL (30-55) 09/03/24 02:55 RDW 12.9 % (12.1-15.1) 09/03/24 02:55 Plt Count 368 10^3/cmm (157-399) 09/03/24 02:55 MPV 9.8 fL (7.4-10.4) 09/03/24 02:55 Neut % (Auto) 59.6 % 09/03/24 02:55 Lymph % (Auto) 30.8 % 09/03/24 02:55 [place] % (Auto) 6.3 % 09/03/24 02:55 Eos % (Auto) 2.1 % 09/03/24 02:55 Baso % (Auto) 0.8 % 09/03/24 02:55 Neut # (Auto) 6.35 10^3/uL (1.8-7.7) 09/03/24 02:55 Lymph # (Auto) 3.3 10^3/uL (0.8-4.8) 09/03/24 02:55 [place] # (Auto) 0.7 10^3/uL (0.2-0.9) 09/03/24 02:55 Eos # (Auto) 0.2 10^3/uL (0.0-0.8) 09/03/24 02:55 Baso # (Auto) 0.1 10^3/uL (0.0-0.1) 09/03/24 02:55 Nucleated RBC % (auto) 0 % 09/03/24 02:55 Nucleated RBCs # 0.0 /100WBC 09/03/24 02:55 PT 10.80 SECONDS (12.1-14.9) L 09/02/24 20:43 INR 0.72 (0.8-1.2) L 09/02/24 20:43 APTT 28.4 SECONDS (23.9-36.7) 09/02/24 20:43 Sodium 139 mmol/L (136-145) 09/04/24 10:58 Potassium 3.8 mmol/L (3.5-5.1) 09/04/24 10:58 Chloride 103 mmol/L (98-107) 09/04/24 10:58 Carbon Dioxide 25 mmol/L (22-29) 09/04/24 10:58 Anion Gap 14.8 (5-19) 09/04/24 10:58 BUN 15 mg/dL (8-23) 09/04/24 10:58 Creatinine 0.9 mg/dL (0.5-0.9) 09/04/24 10:58 GFR Calculation 62.6 mL/min (90-130) L 09/04/24 10:58 Glucose 93 mg/dL (65-115) 09/04/24 10:58 Calculated Osmolality 289 mOsm/kg (285-295) 09/04/24 10:58 Calcium 8.8 mg/dL (8.5-10.5) 09/04/24 10:58 Total Bilirubin 0.2 mg/dL (0.15-1.2) 09/02/24 20:43 AST 27 U/L (0-32) 09/02/24 20:43 ALT 20 U/L (0-33) 09/02/24 20:43 Alkaline Phosphatase 101 U/L (35-105) 09/02/24 20:43 Troponin T Baseline 285 ng/L (0-10) H* 09/02/24 20:43 Troponin T 120 Minute 379.3 ng/L (0-10) H 09/02/24 22:40 Delta Troponin T 94.3 ABS# (0-10) H* 09/02/24 22:40 Troponin T Hi Sens 6Hr 786.1 ng/L (0-10) H 09/03/24 02:55 Troponin T Hi Sens 6Hr Delta 501.1 ng/L (0-12) H* 09/03/24 02:55 NT-Pro-B Natriuret Pep 3843 pg/mL (0-125) H 09/02/24 20:43 Total Protein 7.2 g/dL (6.6-8.7) 09/02/24 20:43 Albumin 4.4 g/dL (3.5-5.2) 09/02/24 20:43 Globulin 2.8 g/dL (1.3-4.6) 09/02/24 20:43 Vitals Last Vital Signs Temp 98.6 F 09/05/24 04:00 Pulse 68 09/05/24 08:00 Resp 16 09/05/24 08:00 BP 112/60 09/05/24 08:00 Pulse Ox 94 09/05/24 08:00 O2 Del Method Room Air 09/05/24 08:00 Discharge Plan Discharge Patient Disposition: Home Condition: Stable Prescriptions: New atorvastatin 40 mg Tablet 80 mg PO BEDTIME Qty: 90 3RF aspirin 81 mg Tablet,Delayed Release (Dr/Ec) 81 mg PO DAILY Qty: 90 3RF levothyroxine 125 mcg Tablet 125 mcg PO QAM Qty: 90 4RF nitroglycerin 0.4 mg Tablet, Sublingual 0.4 mg sublingual Q5M PRN (Reason: Chest Pain) Qty: 30 3RF metoprolol succinate 25 mg Tablet Extended Release 24 Hr 12.5 mg PO DAILY Qty: 90 3RF lisinopril 2.5 mg Tablet 2.5 mg PO BEDTIME Qty: 30 3RF Brilinta 90 mg Tablet 90 mg PO BID Qty: 180 4RF pantoprazole 40 mg tablet,delayed release (DR/EC) 40 mg PO DAILY 56 Days Qty: 90 0RF potassium chloride 20 mEq tablet extended release 20 meq PO DAILY Qty: 90 4RF Continued latanoprost 0.005 % drops 1 drp ophthalmic (eye) QPM methocarbamol 750 mg tablet 750 - 1,500 mg PO TID PRN (Reason: Back Pain) tamsulosin 0.4 mg capsule 0.4 mg PO DAILY levothyroxine 125 mcg tablet 125 mcg PO QAM nystatin 100,000 unit/gram cream 1 applic TOPICAL BID dorzolamide-timolol 22.3-6.8 mg/mL drops 1 drp ophthalmic (eye) BID ergocalciferol (vitamin D2) [Vitamin D2] 1,250 mcg (50,000 unit) capsule 1,250 mcg PO Q7D Rx Instructions: Saturday' albuterol sulfate 90 mcg/actuation HFA aerosol inhaler 2 puff INHALATION .Q 4-6 H PRN (Reason: Shortness Of Breath) Changed furosemide 20 mg tablet 40 mg PO QAM Qty: 30 3RF Discontinued ibuprofen 800 mg tablet 800 mg PO TID PRN (Reason: Pain) Discharge Orders: Discharge Order (Routine); Ordered 09/05/24 Ordered By: Justino Ling Referrals: Gurinder Crooks EMPLOYEE BENEFITS INSURANCE AGENT [Primary Care Provider] - (Please contact Primary Care to schedule your follow up appointment ) Discharge Diet: Cardiac and Low Salt Discharge Activity: Increase activity as tolerated Patient Instructions: Nitroglycerin (By mouth), Lisinopril (By mouth), Levothyroxine (By mouth) (Levothroid, Levoxyl, Synthroid, Tirosint), Potassium Chloride (By mouth), Aspirin (By mouth), Atorvastatin (By mouth), Pantoprazole (By mouth), Ticagrelor (By mouth), Hypothyroidism, Heart Attack (DC), Heart Failure (DC), Coronary Artery Disease (DC), How to Stop Smoking (DC), Cigarette Smoking and Your Health (GEN), Heart Catheterization (DC), CHF Stoplight, Opioid Safety, Post Angiogram Home Care Instructions, Post Heart Attack Stoplight Activity Restrictions/Additional Instructions: Please provide patient with heart failure education. Less than 2 g of salt a day if gain more than 3 pounds in 2 congestive day that day she should take extra water pill along with extra potassium. Follow-up with cardiology nurse practitioner Ms. Syeda Wu in 1 week. Follow-up with Dr. Ling in 1 month. Discharge Attestations Time Spent in Discharge Care*: greater than 30 min Quality Metrics Clinical Quality Measures [ Acute Myocardial Infaction { Clinical Trial Participant: No; Contraindication to aspirin: None; Aspirin prescribed; Contraindication to statin: None; Statin prescribed;}] Coding Level of Care Code Acute Code for [facility] Fwd Diagnoses Coronary artery disease involving [place] coronary artery of [place] heart without angina pectoris I25.10 Associated angina: without angina Coronary Disease-Associated Artery/Lesion type: [place] artery [place] vs. transplanted heart: [place] heart ACS (acute coronary syndrome) I24.9 Systolic CHF, acute I50.21 Smoking addiction F17.200 NSTEMI (non-ST elevated myocardial infarction) I21.4 Ischemic cardiomyopathy I25.5 Left ventricular systolic dysfunction (LVSD) I51.89
[2024-09-05 17:19] LABS: Glucose Point of Care 292 mg/dL (70-110)
[2024-09-05] MEDS: HYDROcodone-acetaminophen 5-325 mg Tablet 1 TAB PO (18:00)
--- NOTE | 2024-09-05 18:26 | PC.NURSE ---
discharge medications received from meds to beds program.discharge instructions given and explained.zoll lifevest fitted by mason olvera.pt and spouse verb understanding of discharge instructions.discharged via w/c to exit at this time.spouse to drive pt home
== END 2024-09-05 18:28 | disposition home or self-care (01) | DRG 321 ==
LOC: ER 22:50 → CCL 22:51 → CSU 09-03 00:17
PROVIDERS: Admitting Provider Internal Medicine Cardiovascular Disease; Emergency Provider Emergency Medicine; PCP Nurse Practitioner; Visit Provider Internal Medicine Cardiovascular Disease
PROC: 027034Z Dilation of Coronary Artery, One Artery with Drug-eluting Intraluminal Device, Percutaneous Approach (ICD-10-PCS; principal; 2024-09-02 22:40)
PROC: 027034Z Dilation of Coronary Artery, One Artery with Drug-eluting Intraluminal Device, Percutaneous Approach (ICD-10-PCS; 2024-09-02 22:40)
DX: I21.4 Non-ST elevation (NSTEMI) myocardial infarction (principal); I50.21 Acute systolic (congestive) heart failure; I25.10 Atherosclerotic heart disease of native coronary artery without angina pectoris; I24.9 Acute ischemic heart disease, unspecified; F17.200 Nicotine dependence, unspecified, uncomplicated; I25.5 Ischemic cardiomyopathy; Z79.02 Long term (current) use of antithrombotics/antiplatelets
CPT/HCPCS: 36415; 36416; 71045; 80048; 80053; 82962; 83880; 84484; 85025; 85347; 85610; 85730; 93005; 93306; 93458; 96365; 96366; 96367; 96376; 99152; 99153; 99285; C1725; C1769; C1874; C1887; C1894; C9600; J1644; J1940; J2250; J3010; J3490; J7030; Q9967

== ENCOUNTER → 2024-09-16 13:10 | Outpatient (BNVA) | payer MEDICARE, SELFPAY | PROVIDERS: PCP Nurse Practitioner; Visit Provider Nurse Practitioner Family | DX: I25.10 Atherosclerotic heart disease of native coronary artery without angina pectoris (principal); R73.9 Hyperglycemia, unspecified; I50.21 Acute systolic (congestive) heart failure; I25.5 Ischemic cardiomyopathy; F17.200 Nicotine dependence, unspecified, uncomplicated | CPT/HCPCS: 36415; 80048; 83036; 85025; 99213 ==

== ENCOUNTER 2024-09-22 13:56 | Outpatient (CLI) | payer MEDICARE, SELFPAY ==
--- NOTE | 2024-09-22 14:30 | CT_ITS ---
WS: [id number] CT LUMBAR SPINE TECHNIQUE: Noncontrast CT of the lumbar spine with coronal and sagittal reformatted images. CLINICAL INFORMATION: VERTEBROGENIC LOW BACK PAIN COMPARISON: None. DLP: 455.[address] scans at [facility] use at least one of these dose optimization techniques: automated e xposure control; mA and/or kV adjustment per patient size (includes targeted exams where dose is matc hed to clinical indication); or iterative reconstruction. FINDINGS: Lumbar curve. Grade 1 anterolisthesis L4 on L5. No acute compression fractures. L1-L2: Normal. L2-L3: Mild facet arthropathy. Slight narrowing of the RIGHT subarticular recess. Spinal canal and fo ramen are patent. L3-L4: Mild annular bulging with moderate to severe central canal stenosis. Advanced facet arthropath y with ligamentum flavum hypertrophy. Mild RIGHT and no significant LEFT foraminal narrowing. L4-L5: Grade 1 anterolisthesis. Severe central canal stenosis. Advanced facet arthropathy with ligame ntum flavum hypertrophy. Moderate to severe LEFT and mild RIGHT bony foraminal narrowing. L5-S1: Slight anterolisthesis. Mild disc bulge with impingement of traversing LEFT greater than RIGHT S1 nerve roots. Advanced facet arthropathy. Mild LEFT greater than RIGHT foraminal narrowing. Visualized pelvic bony structures: Normal. Paravertebral soft tissues: Normal. Lung bases are well aerated. Adrenal glands are normal. CT/CT lumbar spine wo con* [id number] IMPRESSION: 1. Moderate L3-4 and severe L4-5 central canal stenosis. Grade 1 anterolisthes is L4 on L5. Recommend spine surgery consultation. 2. Advanced facet arthropathy L3-L4 L4-L5. 3. Disc bulging L5-S1 impinges the LEFT S1 nerve root. 4. Moderate to severe LEFT L4-5 foraminal narrowing. 5. Advanced arthropathy L5-S1.
== END 2024-09-22 13:57 | disposition home or self-care (01) ==
PROVIDERS: PCP Nurse Practitioner; Visit Provider Nurse Practitioner
DX: M54.51 Vertebrogenic low back pain (principal); M48.061 Spinal stenosis, lumbar region without neurogenic claudication; M47.896 Other spondylosis, lumbar region; M51.379 Other intervertebral disc degeneration, lumbosacral region without mention of lumbar back pain or lower extremity pain; M47.897 Other spondylosis, lumbosacral region; M43.8X6 Other specified deforming dorsopathies, lumbar region; R93.7 Abnormal findings on diagnostic imaging of other parts of musculoskeletal system; M48.07 Spinal stenosis, lumbosacral region
CPT/HCPCS: 72131

== ENCOUNTER 2024-09-29 08:24 | Outpatient (CLI) | payer MEDICARE, SELFPAY ==
[2024-09-29] VITALS (11 sets, daily range): BP systolic 103–121; BP diastolic 53–68; PULSE 48–83; RESP 15–19; TEMP 36.2–37.1; O2SAT 93–100; BMI 30.4
[2024-09-29] MEDS: diphenhydrAMINE 50 mg Capsule PO (09:24)
--- NOTE | 2024-09-29 11:59 | W.PM.OPSUD ---
Surgery/Procedure H&P Update DATE OF PROCEDURE: September 29, 2024 DATE H&P PERFORMED: 09/16/24 H&P UPDATE INFORMATION: I have reviewed H&P completed within last 30 days, I have examined patient prior to procedure and No changes to prior documentation CHANGES TO PREVIOUS DOCUMENTATION: Staged PCI of ramus intermedius and distal circumflex. Patient has history of unstable acute coronary syndrome noted to have significant proximal LAD disease on 05 September 2024. It was treated with drug-eluting stent LAD was fixed because of radiation and contrast with left heart will bring patient back for staged PCI to ramus intermedius and circumflex since patient has severely depressed left ventricular ejection fraction. PREOP DIAGNOSIS: Staged PCI for multivessel PLANNED PROCEDURE: Operation Date: 09/29/24 10:00 Proposed Procedures p Percutaneous Coronary Intervention - Stage PCI(Not Applicable) - Justino Ling MD PATIENT REASSESSED PRIOR TO SEDATION, WITH NO CHANGE NOTED: Yes PHYSICAL EXAM: alert, oriented x 3, clear to auscultation bilaterally and regular rate & rhythm AIRWAY EVAL/ANESTHESIA PLAN: ASA II, Risks, benefits & alternatives of sedation and/or procedure discussed and Patient agrees to continue as planned
--- NOTE | 2024-09-29 12:54 | XACV_ITS ---
Exam Room: 2 Ht: 152 cm Wt: 71 kg BSA: 1.76 m2 Gender: Female : 1955 Any Known Allergies: Other Exam Priority: Routine Procedure(s): Procedure Description: Diagnostic procedure Procedure Description: Left Heart Catheterization Procedure Description: Coronary Angiography Diagnostic Cath Status: Elective Diagnostic Findings * 1st Diagonal: severe 90% stenosis, RAMON: 3 flow. It is a small caliber vessel not amenable to intervention. * Left Main has no disease. * Left Anterior Descending has no disease. * Right Coronary Artery has no disease. * Distal Circumflex: obstructive 70% stenosis, RAMON: 3 flow. * Ramus: significant 80% stenosis, RAMON: 3 flow. * Coronary angiography shows right dominance. Interventional Findings * Distal Circumflex: 70% stenosis treated with a AB MINI TREK 2.00X12 RX BALLOON. 20% residual stenosis, RAMON: 3 flow. * Ramus: 80% stenosis treated with a AB TREK 2.50X12 RX BALLOON, MDT Levon COREY 2.75X15 RADHA, and MDT ZITA EUPHORA RX 3.72C75CP BALLOON. 0% residual stenosis, RAMON: 3 flow. Conclusions 1. There is obstructive coronary artery disease with one vessel disease. 2. Distal Circumflex was treated with a Balloon. 3. Ramus was treated with a Balloon, Drug Eluting Stent, and Balloon. Recommendations * 1-Return to inpatient for close monitoring and routine cath care 2-Risk factor modification for secondary prevention 3-Statin and aspirin 81 mg life-long, if tolerated 4-Patient was pre-loaded with 600 mg of Plavix, continue Plavix 75mg p.o. daily for at least one year. We will assess at the end of one year again to continue if further or not 5-Continue optimal medical management 6-Follow up with Dr. Ling in four weeks and your primary care in 10 days. Diagnostic RX Recommendation: PCI w/o planned CABG Pressures Phase:Rest AO : 103 / 57 ( 71 ) @ 12:23:00 PM 80 / 39 ( 53 ) @ 12:45:00 PM Clinical Evaluation EBL: 5mL-10mL Procedural Details Procedure Consent Obtained. Admit Source: Out Patient. Pre-Procedure Time Out. Identified patient by full name and date of as verbalized by the patient/guarantor. Does the consent match the physician's order: Yes. Accurate & Complete Informed Consent: Yes. Inpatient/Outpatient History & Physical on Chart: Yes. If H&P is completed, is and addenduem needed: No; If yes, is the addendum complete: N/A. Visualize and Verify Site with Patient/Guarantor: N/A. Relevant Radiology Images available: Yes. The risks, benefits, and alternatives of sedation and/or procedure were discussed by physician. The patient agrees to continue. Procedure started. [facility] Clinical Fraility Score: 3: Managing Well. 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 Chest Pain Symptom Assessment: Typical Angina Symptoms. Correct patient, site and procedure confirmed by cath team. Current diagnosis: Stable angina. PERRLA. Strong, equal hand play back operator bilaterally. Lungs clear x 5 lobes. IV Site on Arrival: 20 gauge in the left anticubital. Pre Procedural Pulses: bilateral radial was 1+. Pre Procedural Pulses: bilateral dorsalis pedis was Doppled. Pre Procedural Pulses: bilateral posterior tibial was Doppled. Oxygen started at 2liters/min via nasal canula. right radial was prepped with chloroprep then draped in the usual sterile fashion. right groin was prepped with chloroprep then draped in the usual sterile fashion. Baseline sample Acquired. HR: 59 BPM. Physician notified. Physician arrived. Physician scrubbed in. Immediate Pre-Procedure Time Out. Correct Patient: Yes; Correct Procedure: Yes; Correct Site: Yes; Correct Patient Position: Yes; Correct Supplies: Yes; Dried Flammable Prep: Yes; Blood Products Available: No;. Lidocaine 1% infiltrated to the right radial. Arterial access obtained. 6 greenlandic XB 3 SH guide catheter was inserted over the wire. Angiography performed. Runthrough guidewire was advanced through the guide catheter to lesion in the Ramus. Guidewire advanced across lesion. Inflation number : 1 A AB TREK 2.50X12 RX BALLOON was prepped and advanced across the Ramus , then inflated to 12 ADRIANA for 0:11 seconds. Balloon out. Stent inserted to lesion in the Ramus. Inflation Number : 2 A MDT R COREY 2.75X15 RADHA -Lot Number# [id number] EXP 12-14-2026 was prepped and advanced across the Ramus. The stent was deployed at 14 ADRIANA for 0:16 seconds. Stent balloon out over wire. Balloon inserted to lesion in the Ramus. Inflation number : 3 A MDT NC EUPHORA RX [id number] BALLOON was prepped and advanced across the Ramus , then inflated to 14 ADRIANA for 0:13 seconds. Inflation number: 4 The MDT NC EUPHORA RX [id number] BALLOON was reinflated across the Ramus, to 12 ADRIANA for 0:12 seconds. Balloon out. Runthrough repositioned to distal Circ. Guidewire advanced across lesion. ACT drawn. Results out of range high results seconds. Therapeutic limits - pre-heparin administration 90-150 seconds and monitoring heparin during a vascular procedure >250 seconds. Balloon inserted to lesion in the distal Circ. Inflation number : 1 A AB MINI TREK 2.00X12 RX BALLOON was prepped and advanced across the Dist CX , then inflated to 12 ADRIANA for 0:13 seconds. Inflation number: 2 The AB MINI TREK 2.00X12 RX BALLOON was reinflated across the Dist CX, to 12 ADRIANA for 0:09 seconds. Inflation number: 3 The AB MINI TREK 2.00X12 RX BALLOON was reinflated across the Dist CX, to 12 ADRIANA for 0:09 seconds. Results checked. Balloon and wire out. Guide catheter out. ACT drawn. Results 382 seconds. Therapeutic limits - pre-heparin administration 90-150 seconds and monitoring heparin during a vascular procedure >250 seconds. A TR Band was successful obtaining hemostatsis at the Right Radial artery insertion site. Post Procedure: Pulses reassessed and unchanged. PERRLA. Strong, equal hand play back operator bilaterally. No VTE prophylaxis required. Medication's Wasted: Lidocaine 1% = 18 mL. Medication's Wasted: Nitro = 49.8 mg , Heparin 1000 units. Medication's Wasted: Other = 75mcg. Total IV fluids: 70 mL. Post-op diagnosis: 1 RADHA placed to Ramus intermedius artery. Balloon Angioplasty distal circumflex. Complications: None. Estimated blood loss: 5mL-10mL. Responsiveness - Normal response to verbal stimuli; alert and oriented, PERRLA. Airway - Unaffected, no intervention required; spontaneous ventilation. Circulation: W/N/L, pulses unchanged. Nausea/Vomiting: No. Procedure completed. Patient transferred by wheelchair to 1st floor. Vital chart was stopped. Access Site Site: Right Radial artery Sheath Size: 6 Fr Hemostasis Method: TR Band Hemostasis Success: Successful Procedure Medications Start: 12:14 PM Stop: 12:14 PM Medication: Versed Amount: 1 mg Route: I.V. Start: 12:14 PM Stop: 12:14 PM Medication: Fentanyl Amount: 25 mcg Route: I.V. Start: 12:19 PM Stop: 12:19 PM Medication: Nitrogylcerin Amount: 200 mcg Route: I.A. Start: 12:22 PM Stop: 12:22 PM Medication: Heparin Amount: 6000 units Route: I.V. Start: 12:35 PM Stop: 12:35 PM Medication: Versed Amount: 1 mg Route: I.V. I, the attending physician, have reviewed and verified all procedure medications. Yes, all medications given per verbal order History/Risk Factors Hypertension: No Dyslipidemia: No Peripheral Arterial Disease (PAD): No Myocardial Infarction (CT): Yes Obesity: No Renal Disease: No Tobacco Use: Current/Recent(w/in 1 year) Prior Interventions PCI: Yes CABG: No Valve Surgery: No Date of PCI: 09/02/2024 Report Signatures Finalized by Justino Ling MD on 10/10/2024 05:15 PM
--- NOTE | 2024-09-29 13:03 | PM.PROC ---
Procedure Note: Date of procedure: 09/29/24 Pre-procedure diagnosis: Staged PCI to the ramus and balloon angioplasty to distal circumflex Procedure: For high-grade ramus intermedius and distal circumflex lesion patient was brought in today for staged PCI. Successful balloon angioplasty followed by drug-eluting stent placement in the proximal ramus intermedius postdilated with noncompliant balloon, distal circumflex was balloon angioplastied, both arteries at the end of the procedure did not have any dissection or occlusion perforation or other complication. There was RAMON-3 flow observed in both arteries. Patient is already on Brilinta and aspirin statin Continue home medications including aspirin 81 mg Brilinta 90 mg twice daily continue statin and beta-jessie IV fluid 100 mL/h for next 5 hours Patient will be enrolled in cardiac rehab as an outpatient. Due to low ejection fraction Possible discharge tomorrow morning. Coding Level of Care Code Acute Code for Roberto Fwkarsten
--- NOTE | 2024-09-29 13:41 | PC.NURSE ---
Patient arrived to CSU from optical laboratory mechanic at approx 1300. TR band in place. Report received from BRIONNA Fountain. Patient aware of activity restrictions. Nurse will monitor q15m and remove TR band per protocol.
[2024-09-29] MEDS: sodium chloride 0.9% 1,000 ML 100 ML IV (13:46)
[2024-09-29] MEDS: ticagrelor 90 mg Tablet PO (17:28)
[2024-09-30] VITALS: BP 111/53; PULSE 60; RESP 20; TEMP 36.9; O2SAT 94
[2024-09-30 03:47] LABS: Basophils # 0.1 10^3/uL (0.0-0.1); Basophils % 1.2 %; Eosinophils # 0.4 10^3/uL (0.0-0.8); Eosinophils % 5.7 %; Hematocrit 39.4 % (36-47); Lymphocytes # 2.3 10^3/uL (0.8-4.8); Lymphocytes % 34.7 %; Mean Corpuscular HGB Conc 33.2 g/dL (30-55); Mean Corpuscular Hemoglobin 30.2 pg (27-33); Mean Corpuscular Volume 90.8 fl (85-98); Mean Platelet Volume 9.9 fL (7.4-10.4); Monocytes # 0.8 10^3/uL (0.2-0.9); Monocytes % 11.7 %; Neutrophils # 3.02 10^3/uL (1.8-7.7); Neutrophils % 46.2 %; Nucleated Red Blood Cells % 0 %; Platelet Count 244 10^3/cmm (157-399); Red Blood Count 4.34 10^6/uL (3.85-5.65); Red Cell Distribution Width 12.8 % (12.1-15.1); White Blood Count 6.52 10^3/uL (3.29-11.43)
[2024-09-30 04:00] VITALS: BP 114/51; PULSE 78; RESP 11; TEMP 36.6; O2SAT 98
[2024-09-30 04:11] LABS: Blood Urea Nitrogen 18 mg/dL (8-23); Calcium 8.5 mg/dL (8.5-10.5); Carbon Dioxide 27 mmol/L (22-29); Chloride 106 mmol/L (98-107); Creatinine Clr Calc Pharmacy 60.7203; Glomerular Filtration Rate 71.8 mL/min (90-130); Glucose 116 mg/dL (65-115); Osmolality Calculated 297 mOsm/kg (285-295); Sodium 142 mmol/L (136-145)
[2024-09-30 06:00] VITALS: PULSE 62
[2024-09-30 08:00] VITALS: BP 109/54; PULSE 64; RESP 17; TEMP 36.6; O2SAT 95
[2024-09-30] MEDS: ticagrelor 90 mg Tablet PO (08:27)
[2024-09-30] MEDS: aspirin 81 mg EC Tablet PO (08:27)
[2024-09-30 12:00] VITALS: BP 164/90; PULSE 70; RESP 24; TEMP 36.4; O2SAT 95
--- NOTE | 2024-09-30 14:58 | P.DS_ITS ---
<Statement entered by Justino Ling MD - 10/01/24 00:20> Patient was evaluated and cared for in conjunction with an advanced practice practitioner. I personally examined the patient and reviewed the chart and all pertinent data including imaging, telemetry, and laboratory results. I discussed the patient in detail with the advanced practice practitioner. Please see their note for complete H&P testing result and agreed upon plan of care for the patient. Discharge Providers Date of Admission: 09/29/2024 Date of Discharge: September 30, 2024 Attending Provider at Admission: Dr. Ling Attending Provider at Discharge: Justino Ling MD Primary Care Provider: DELONTE Atkinson Reason for Visit Reason for Visit: I25.10 Brief History: Staged PCI of ramus intermedius and distal circumflex. Patient has history of unstable acute coronary syndrome noted to have significant proximal LAD disease on 05 September 2024. It was treated with drug-eluting stent LAD was fixed because of radiation and contrast with left heart will bring patient back for staged PCI to ramus intermedius and circumflex since patient has severely depressed left ventricular ejection fraction. Hospital Course Hospital Course For high-grade ramus intermedius and distal circumflex lesion patient was brought in today for staged PCI. Successful balloon angioplasty followed by drug-eluting stent placement in the proximal ramus intermedius postdilated with noncompliant balloon, distal circumflex was balloon angioplastied, both arteries at the end of the procedure did not have any dissection or occlusion perforation or other complication. There was RAMON-3 flow observed in both arteries. Patient is already on Brilinta and aspirin statin Physical Exam Narrative: General: No apparent distress, healthy appearing, well nourished HENMT: normoceophalic Muskuloskeletal: Full ROM Lymphatic: no lymphedema noted Respiratory: Normal respiratory effort, clear to auscultation bilaterally throughout all lung burton, no use of accessory muscles Cardio: No JVD, regular rate, regular rhythm, S1 S2 normal, no murmurs, peripheral pulses 2+ throughout GI: Normal to inspection, nondistended Extremities: Full ROM, normal, normal capillary refill, no cyanosis or edema Neuro: Alert and oriented x4, no focal motor deficits Psych: Affect normal, denies suicidal ideation, mental status grossly normal Skin: right radial cath site clean, dry, w/o s/s of hematoma present Discharge Data Studies Completed and Pending Pending at discharge Category Date Time Status 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 PROGRAM MANAGER request for service Routine Exams 09/29/24 12:54 Taken Laboratory Results WBC 6.52 10^3/uL (3.29-11.43) 09/30/24 03:10 RBC 4.34 10^6/uL (3.85-5.65) 09/30/24 03:10 Hgb 13.10 g/dL (11.27-16.99) 09/30/24 03:10 Hct 39.4 % (36-47) 09/30/24 03:10 MCV 90.8 fl (85-98) 09/30/24 03:10 MCH 30.2 pg (27-33) 09/30/24 03:10 MCHC 33.2 g/dL (30-55) 09/30/24 03:10 RDW 12.8 % (12.1-15.1) 09/30/24 03:10 Plt Count 244 10^3/cmm (157-399) 09/30/24 03:10 MPV 9.9 fL (7.4-10.4) 09/30/24 03:10 Neut % (Auto) 46.2 % 09/30/24 03:10 Lymph % (Auto) 34.7 % 09/30/24 03:10 [place] % (Auto) 11.7 % 09/30/24 03:10 Eos % (Auto) 5.7 % 09/30/24 03:10 Baso % (Auto) 1.2 % 09/30/24 03:10 Neut # (Auto) 3.02 10^3/uL (1.8-7.7) 09/30/24 03:10 Lymph # (Auto) 2.3 10^3/uL (0.8-4.8) 09/30/24 03:10 [place] # (Auto) 0.8 10^3/uL (0.2-0.9) 09/30/24 03:10 Eos # (Auto) 0.4 10^3/uL (0.0-0.8) 09/30/24 03:10 Baso # (Auto) 0.1 10^3/uL (0.0-0.1) 09/30/24 03:10 Nucleated RBC % (auto) 0 % 09/30/24 03:10 Nucleated RBCs # 0.0 /100WBC 09/30/24 03:10 Sodium 142 mmol/L (136-145) 09/30/24 03:10 Potassium 4.0 mmol/L (3.5-5.1) 09/30/24 03:10 Chloride 106 mmol/L (98-107) 09/30/24 03:10 Carbon Dioxide 27 mmol/L (22-29) 09/30/24 03:10 Anion Gap 13.0 (5-19) 09/30/24 03:10 BUN 18 mg/dL (8-23) 09/30/24 03:10 Creatinine 0.8 mg/dL (0.5-0.9) 09/30/24 03:10 GFR Calculation 71.8 mL/min (90-130) L 09/30/24 03:10 Glucose 116 mg/dL (65-115) H 09/30/24 03:10 Calculated Osmolality 297 mOsm/kg (285-295) H 09/30/24 03:10 Calcium 8.5 mg/dL (8.5-10.5) 09/30/24 03:10 Procedures Performed Successful balloon angioplasty followed by drug-eluting stent placement in the proximal ramus intermedius postdilated with noncompliant balloon, distal circumflex was balloon angioplastied Vitals Last Vital Signs Temp 97.5 F L 09/30/24 12:00 Pulse 70 09/30/24 12:00 Resp 24 H 09/30/24 12:00 BP 164/90 09/30/24 12:00 Pulse Ox 95 09/30/24 12:00 O2 Del Method Room Air 09/30/24 12:00 Discharge Plan Discharge Patient Disposition: Home Prescriptions: Continued ascorbic acid (vitamin C) 500 mg capsule 3,000 mg PO DAILY furosemide 20 mg tablet 40 mg PO QAM Qty: 30 3RF potassium chloride 20 mEq tablet extended release 20 meq PO DAILY Qty: 90 4RF metoprolol succinate 25 mg tablet extended release 24 hr 12.5 mg PO DAILY Qty: 90 3RF lisinopril 2.5 mg tablet 2.5 mg PO BEDTIME Qty: 30 3RF Brilinta 90 mg tablet 90 mg PO BID Qty: 180 4RF latanoprost 0.005 % drops 1 drp ophthalmic (eye) QPM methocarbamol 750 mg tablet 750 - 1,500 mg PO TID PRN (Reason: Back Pain) levothyroxine 125 mcg tablet 125 mcg PO QAM nystatin 100,000 unit/gram cream 1 applic TOPICAL BID dorzolamide-timolol 22.3-6.8 mg/mL drops 1 drp ophthalmic (eye) BID ergocalciferol (vitamin D2) [Vitamin D2] 1,250 mcg (50,000 unit) capsule 1,250 mcg PO Q7D Rx Instructions: Saturday' albuterol sulfate 90 mcg/actuation HFA aerosol inhaler 2 puff INHALATION .Q 4-6 H PRN (Reason: Shortness Of Breath) atorvastatin 40 mg Tablet 80 mg PO BEDTIME Qty: 90 3RF aspirin 81 mg Tablet,Delayed Release (Dr/Ec) 81 mg PO DAILY Qty: 90 3RF nitroglycerin 0.4 mg Tablet, Sublingual 0.4 mg sublingual Q5M PRN (Reason: Chest Pain) Qty: 30 3RF pantoprazole 40 mg tablet,delayed release (DR/EC) 40 mg PO DAILY 56 Days Qty: 90 0RF Discharge Orders: Discharge Order (Routine); Ordered 09/30/24 Ordered By: Syeda Wu Referrals: Gurinder Crooks FNP [Primary Care Provider] - 10/07/24 9:30 am Isa Chan FNP [Nurse Practitioner] - 10/08/24 1:30 pm Diet: Advance as tolerated and Cardiac Activity: Increase activity as tolerated Patient Instructions: Coronary Angioplasty (DC), CHF Stoplight, Post Angiogram Home Care Instructions Activity Restrictions/Additional Instructions: Discussed with patient no heavy lifting more than a gallon of milk for3 days. No driving for 3 days. Monitor for and report signs or symptoms of bleeding. Monitor for and report s/s of infection such as fever 101 or greater, swelling, redness or pain to the wrist. Successful balloon angioplasty followed by drug-eluting stent placement in the proximal ramus intermedius postdilated with noncompliant balloon, distal circumflex was balloon angioplastied, both arteries at the end of the procedure did not have any dissection or occlusion perforation or other complication. There was RAMON-3 flow observed in both arteries. Patient is already on Brilinta and aspirin statin Continue home medications including aspirin 81 mg Brilinta 90 mg twice daily continue statin and beta-ejssie, low dose lisinopril, lasix, statin therapy Print Language: Uzbek Discharge Attestations Time Spent in Discharge Care*: greater than 30 min Quality Metrics Clinical Quality Measures [ No reported AMI, CVA or VTE this stay] Coding Level of Care Code Acute Code for Chg Jacob
--- NOTE | 2024-09-30 15:15 | PC.NURSE ---
discharge instructions given and explained.pt verb understanding of instructions.discharged via w/c to exit at this time.spouse to drive pt home
[2024-09-30 15:17] VITALS: BP 164/90; PULSE 94; RESP 20; O2SAT 94
== END 2024-09-30 15:18 | disposition home or self-care (01) ==
LOC: CCL 08:31 → CSU 13:41
PROVIDERS: PCP Nurse Practitioner; Visit Provider Internal Medicine Cardiovascular Disease
DX: I25.10 Atherosclerotic heart disease of native coronary artery without angina pectoris (principal); Z79.82 Long term (current) use of aspirin; E03.9 Hypothyroidism, unspecified; Z87.891 Personal history of nicotine dependence; R73.9 Hyperglycemia, unspecified
CPT/HCPCS: 36415; 80048; 85025; 85347; 92920; 96374; 99152; 99153; C1725; C1769; C1874; C1887; C1894; C9600; J1644; J2250; J3010; J3490; J7030; Q0163; Q9967

== ENCOUNTER → 2024-10-12 14:12 | Outpatient (BNVA) | payer MEDICARE, SELFPAY | PROVIDERS: PCP Nurse Practitioner; Visit Provider Nurse Practitioner Family | DX: I25.10 Atherosclerotic heart disease of native coronary artery without angina pectoris (principal); I11.9 Hypertensive heart disease without heart failure; M19.90 Unspecified osteoarthritis, unspecified site; F17.200 Nicotine dependence, unspecified, uncomplicated | CPT/HCPCS: 99214 ==

== ENCOUNTER 2024-11-09 08:48 | Outpatient (CLI) | payer MEDICARE, SELFPAY ==
--- NOTE | 2024-11-09 09:15 | USCV_ITS ---
Samantha Almaraz Age: 68 Gender: F : 1955 Exam Date: 11/09/2024 09:03 Ordering Phys: Isa Chan Technologist: Exam Location: [facility] – [place] Indication: history of mi BP: 110 / 67 HR: Rhythm: Sinus Technical Quality: Adequate MEASUREMENTS (Male / Female) Normal Values 2D ECHO LV Diastolic Diameter PLAX 3.7 cm 4.2 - 5.9 / 3.9 - 5.3 cm IVS Diastolic Thickness 1.2 cm 0.6 - 1.0 / 0.6 - 0.9 cm IVS Systolic Thickness 1.2 cm LVPW Diastolic Thickness 1.3 cm 0.6 - 1.0 / 0.6 - 0.9 cm LVPW Systolic Thickness 1.5 cm LV Ejection Fraction 2D Teich 56.7 % LV Ejection Fraction MOD 4C 68.3 % LV Ejection Fraction MOD 2C 70.8 % LV Ejection Fraction 2C AL 70.3 % RA Systolic Volume 4C AL 20.5 ml RA Systolic Volume 4C MOD 20.6 ml M-MODE LA Ao Ratio MM 1.2 AV Cusp Separation MM 2.3 cm FINDINGS Left Ventricle Normal left ventricular size and systolic function, EF 60%. Mild left ventricular hypertrophy. No regional wall motion abnormalities. Right Ventricle Possibly normal size ejection fraction Right Atrium Normal right atrial size. Left Atrium . Normal left atrial size. Mitral Valve No gross abnormalities noted Aortic Valve No gross abnormalities noted Tricuspid Valve No gross abnormalities noted Pulmonic Valve Pulmonic valve not well visualized. Pericardium Normal pericardium without effusion. Aorta Normal aortic annulus size. IVC Inferior vena cava not visualized. CONCLUSIONS Normal left ventricular size and systolic function, EF 60%. Mild left ventricular hypertrophy. No regional wall motion abnormalities. Possibly normal cardiac chamber sizes. No gross valvular abnormalities There is no pericardial effusion. There are no intracardiac masses. Compared to the study from 09/03/2024, there is significant improvement in the LV ejection fraction from 30-35% to 60%. Dr Joe Park MD [facility] (Electronically Signed) Final Date: 12 November 2024 21:17 S
== END 2024-11-09 08:49 | disposition home or self-care (01) ==
LOC: RAD 08:49
PROVIDERS: PCP Nurse Practitioner; Visit Provider Nurse Practitioner Family
DX: I50.21 Acute systolic (congestive) heart failure (principal); I51.7 Cardiomegaly
CPT/HCPCS: 93308

== ENCOUNTER → 2024-12-07 12:53 | Outpatient (BNVA) | payer MEDICARE, SELFPAY | PROVIDERS: PCP Nurse Practitioner; Visit Provider Internal Medicine Cardiovascular Disease | DX: I25.10 Atherosclerotic heart disease of native coronary artery without angina pectoris (principal); I25.5 Ischemic cardiomyopathy; I24.9 Acute ischemic heart disease, unspecified; M47.816 Spondylosis without myelopathy or radiculopathy, lumbar region; M19.90 Unspecified osteoarthritis, unspecified site; Z79.01 Long term (current) use of anticoagulants; Z79.82 Long term (current) use of aspirin; F17.200 Nicotine dependence, unspecified, uncomplicated; Z95.5 Presence of coronary angioplasty implant and graft | CPT/HCPCS: 99214 ==

== ENCOUNTER → 2025-06-08 12:36 | Outpatient (BNVA) | payer MEDICARE, SELFPAY | PROVIDERS: PCP Nurse Practitioner; Visit Provider Internal Medicine Cardiovascular Disease | DX: I25.10 Atherosclerotic heart disease of native coronary artery without angina pectoris (principal); I10 Essential (primary) hypertension; E78.5 Hyperlipidemia, unspecified; Z72.0 Tobacco use | CPT/HCPCS: 99214 ==